=== PATIENT | male | born 1945 | race Two or more races ===

== ENCOUNTER 2018-03-10 12:55 | Inpatient (IN) | payer OTHER ==
[~2018-03-10] VITALS: Ht 162.6 cm; Wt 75.2 kg
[2018-03-10] MEDS ORDERED: POTA10TA31 PO (13:15)
[2018-03-10] MEDS ORDERED: CLOP75TA PO (13:15)
[2018-03-10] MEDS ORDERED: LINA5TAB PO (13:15)
[2018-03-10] MEDS ORDERED: METO25TA91 PO (13:15)
[2018-03-10] MEDS ORDERED: FURO20TA3 PO (13:15)
[2018-03-10 13:57] LABS: BASOPHILS # (AUTO) 0.01 x10^3/uL (0-0.1); BASOPHILS % (AUTO) 0 % (0-1); EOSINOPHILS # (AUTO) 0.02 x10^3/uL (0-0.4); EOSINOPHILS % (AUTO) 0 % (1-7); LYMPHOCYTES # (AUTO) 0.52 x10^3/uL (1-3.4); LYMPHOCYTES % (AUTO) 5 % (22-44); MD NO; MEAN CORPUSCULAR HEMOGLOBIN 30.2 pg (27.5-34.5); MEAN CORPUSCULAR HGB CONC 32.2 g/dL (33.2-36.2); MEAN CORPUSCULAR VOLUME 93.7 fL (81-97); MEAN PLATELET VOLUME 8.9 fL (7.4-10.4); MONOCYTES # (AUTO) 0.42 x10^3/uL (0.2-0.8); MONOCYTES % (AUTO) 4 % (2-9); NEUTROPHILS # (AUTO) 8.94 x10^3/uL (1.8-6.8); NEUTROPHILS % (AUTO) 90 % (42-75); PLATELET COUNT 278 x10^3/uL (130-400); RED BLOOD COUNT 3.87 x10^6/uL (4.38-5.82); RED CELL DISTRIBUTION WIDTH 16.6 % (9.4-14.8)
[2018-03-10 14:05] LABS: ALANINE AMINOTRANSFERASE 31 U/L (12-78); ALBUMIN 3.1 g/dL (3.4-5.0); ANION GAP 10 mmol/L (5-15); CALCIUM 8.5 mg/dL (8.5-10.1); CHLORIDE 112 mmol/L (98-107); CREATININE 2.57 mg/dL (0.7-1.3)
[2018-03-10 14:10] LABS: ALKALINE PHOSPHATASE 103 U/L (45-117); BILIRUBIN,TOTAL 0.6 mg/dL (0.2-1.0); TOTAL PROTEIN 6.4 g/dL (6.4-8.2)
[2018-03-10] MEDS ORDERED: MORPHINE SULFATE 4 MG/ML, 1ML IVPush ONE (14:28)
[2018-03-10] MEDS ORDERED: ASPIRIN 81 MG TABLET CHEW PO ONE (14:30)
[2018-03-10] MEDS ORDERED: ASPIRIN 81 MG TABLET CHEW ONE (14:32)
[2018-03-10] MEDS ORDERED: MORPHINE SULFATE 4 MG/ML, 1ML ONE (14:32)
[2018-03-10] MEDS ORDERED: FENTANYL PF 100 MCG/2ML ONE (14:44)
[2018-03-10] MEDS ORDERED: MIDAZOLAM 1 MG/ML, 5ML ONE (14:44)
[2018-03-10] MEDS ORDERED: BIVALIRUDIN 250 MG ONE (14:44)
[2018-03-10] MEDS ORDERED: VERAPAMIL 2.5 MG/ML, 2ML ONE (14:44)
[2018-03-10] MEDS ORDERED: TICAGRELOR 90 MG TABLET ONE (14:44)
[2018-03-10] MEDS ORDERED: HEPARIN 1,000 UNITS/ML, 10ML ONE (14:45)
[2018-03-10] MEDS ORDERED: HEPARIN 5,000 UNITS/ML, 1ML IV PRN (15:00)
[2018-03-10] MEDS ORDERED: HEPARIN 5,000 UNITS/ML, 1ML IV ONE (15:00)
[2018-03-10] MEDS ORDERED: HEPARIN 25,000 UNITS/500ML PMX 500 ML IV PRN (15:00)
[2018-03-10] MEDS: INSULIN LISPRO 100 UNITS/ML, PEN SQ-INSULIN SCH ×2 (16:00→20:16)
[2018-03-10 16:16] LABS: HEMOGLOBIN A1C 6.2 % (4.2-6.3)
[2018-03-10] MEDS ORDERED: SODIUM CHLORIDE 0.9% 1,000 ML IV SCH (16:21)
[2018-03-10] MEDS: ISOSORBIDE MONONITRATE ER 30 MG TABLET PO SCH (17:50)
[2018-03-10] MEDS ORDERED: ACETAMINOPHEN 325 MG TABLET PO PRN (18:00)
[2018-03-10 18:10] VITALS: BP 115/76
[2018-03-10 19:29] VITALS: BP 114/70
[2018-03-10] MEDS ORDERED: ONDANSETRON 2MG/ML, 2ML IVPush PRN (20:00)
[2018-03-10] MEDS ORDERED: LABETALOL 5MG/ML, 20ML IVPush PRN (20:00)
[2018-03-10] MEDS ORDERED: ZOLPIDEM 5MG TABLET PO PRN (20:00)
[2018-03-10] MEDS ORDERED: morphine SULFATE 10 MG/ML, 1ML IVPush PRN (20:00)
[2018-03-10] MEDS ORDERED: DOCUSATE 100 MG CAPSULE PO PRN (20:00)
[2018-03-10] MEDS: TICAGRELOR 90 MG TABLET PO SCH (20:16)
[2018-03-10] MEDS: ATORVASTATIN 80 MG TABLET PO SCH (20:16)
[2018-03-11 00:40] VITALS: BP 108/68
[2018-03-11 05:13] LABS: ALANINE AMINOTRANSFERASE 25 U/L (12-78); ALBUMIN 2.5 g/dL (3.4-5.0); ANION GAP 10 mmol/L (5-15); CALCIUM 8.1 mg/dL (8.5-10.1); CHLORIDE 112 mmol/L (98-107)
[2018-03-11 05:15] LABS: ALKALINE PHOSPHATASE 85 U/L (45-117); BILIRUBIN,TOTAL 1.2 mg/dL (0.2-1.0); CREATININE 2.28 mg/dL (0.7-1.3); TOTAL PROTEIN 5.5 g/dL (6.4-8.2)
[2018-03-11 05:55] VITALS: BP 124/74
[2018-03-11] MEDS: METOPROLOL SUCCINATE 25 MG TAB.ER.24H PO SCH (05:59)
[2018-03-11 06:43] VITALS: BP 116/67
[2018-03-11] MEDS: INSULIN LISPRO 100 UNITS/ML, PEN SQ-INSULIN SCH ×4 (07:00→20:35)
[2018-03-11] MEDS: TICAGRELOR 90 MG TABLET PO SCH ×2 (08:26→20:28)
[2018-03-11] MEDS: ISOSORBIDE MONONITRATE ER 30 MG TABLET PO SCH (08:27)
[2018-03-11] MEDS: ASPIRIN 81 MG TABLET EC PO SCH (08:27)
[2018-03-11 12:08] VITALS: BP 112/74
[2018-03-11] MEDS: HEPARIN 5,000 UNITS/ML, 1ML SQ SCH (14:40)
[2018-03-11] MEDS: FUROSEMIDE 20 MG TABLET PO SCH (16:26)
[2018-03-11 20:10] VITALS: BP 119/71
[2018-03-11] MEDS: ATORVASTATIN 80 MG TABLET PO SCH (20:28)
[2018-03-12 02:07] VITALS: BP 105/66
[2018-03-12] MEDS: HEPARIN 5,000 UNITS/ML, 1ML SQ SCH ×2 (04:00→15:19)
[2018-03-12 05:34] LABS: BASOPHILS # (AUTO) 0.04 x10^3/uL (0-0.1); BASOPHILS % (AUTO) 1 % (0-1); EOSINOPHILS # (AUTO) 0.23 x10^3/uL (0-0.4); EOSINOPHILS % (AUTO) 3 % (1-7); LYMPHOCYTES # (AUTO) 0.38 x10^3/uL (1-3.4); LYMPHOCYTES % (AUTO) 4 % (22-44); MD NO; MEAN CORPUSCULAR HEMOGLOBIN 30.6 pg (27.5-34.5); MEAN CORPUSCULAR HGB CONC 32.7 g/dL (33.2-36.2); MEAN CORPUSCULAR VOLUME 93.6 fL (81-97); MEAN PLATELET VOLUME 9.1 fL (7.4-10.4); MONOCYTES # (AUTO) 0.71 x10^3/uL (0.2-0.8); MONOCYTES % (AUTO) 8 % (2-9); NEUTROPHILS # (AUTO) 8.02 x10^3/uL (1.8-6.8); NEUTROPHILS % (AUTO) 85 % (42-75); PLATELET COUNT 242 x10^3/uL (130-400); RED BLOOD COUNT 3.61 x10^6/uL (4.38-5.82); RED CELL DISTRIBUTION WIDTH 16.9 % (9.4-14.8)
[2018-03-12 05:44] LABS: ANION GAP 12 mmol/L (5-15); CALCIUM 8.4 mg/dL (8.5-10.1); CHLORIDE 112 mmol/L (98-107)
[2018-03-12 05:45] LABS: CREATININE 1.99 mg/dL (0.7-1.3)
[2018-03-12 05:54] VITALS: BP 120/62
[2018-03-12] MEDS: METOPROLOL SUCCINATE 25 MG TAB.ER.24H PO SCH (05:55)
[2018-03-12] MEDS: INSULIN LISPRO 100 UNITS/ML, PEN SQ-INSULIN SCH ×4 (07:00→19:59)
[2018-03-12 07:28] VITALS: BP 125/76
[2018-03-12] MEDS: ISOSORBIDE MONONITRATE ER 30 MG TABLET PO SCH (09:34)
[2018-03-12] MEDS: FUROSEMIDE 20 MG TABLET PO SCH ×2 (09:34→16:59)
[2018-03-12] MEDS: ASPIRIN 81 MG TABLET EC PO SCH (09:34)
[2018-03-12] MEDS: TICAGRELOR 90 MG TABLET PO SCH ×2 (09:34→19:56)
[2018-03-12 13:21] VITALS: BP 111/69
[2018-03-12 18:50] VITALS: BP 106/59
[2018-03-12] MEDS: ATORVASTATIN 80 MG TABLET PO SCH (19:56)
[2018-03-12] MEDS: GUAIFENESIN/DM 200-20MG, 10ML UDC PO PRN (19:56)
[2018-03-12 21:48] VITALS: BP 115/67
[2018-03-13] MEDS: GUAIFENESIN/DM 200-20MG, 10ML UDC PO PRN ×2 (01:11→08:35)
[2018-03-13 01:21] VITALS: BP 91/50
[2018-03-13] MEDS: HEPARIN 5,000 UNITS/ML, 1ML SQ SCH (02:27)
[2018-03-13] MEDS: METOPROLOL SUCCINATE 25 MG TAB.ER.24H PO SCH (05:46)
[2018-03-13] MEDS: INSULIN LISPRO 100 UNITS/ML, PEN SQ-INSULIN SCH ×2 (07:00→11:00)
[2018-03-13 07:06] VITALS: BP 121/72
[2018-03-13] MEDS: TICAGRELOR 90 MG TABLET PO SCH (08:30)
[2018-03-13] MEDS: ASPIRIN 81 MG TABLET EC PO SCH (08:30)
[2018-03-13] MEDS: ISOSORBIDE MONONITRATE ER 30 MG TABLET PO SCH (08:30)
[2018-03-13] MEDS: FUROSEMIDE 20 MG TABLET PO SCH (08:30)
[2018-03-13] MEDS ORDERED: ISOS30TA8 PO (10:32)
[2018-03-13] MEDS ORDERED: FURO20TA3 PO (10:32)
[2018-03-13] MEDS ORDERED: ASPI81TA45 PO (10:32)
[2018-03-13] MEDS ORDERED: TICA90TA PO (10:32)
[2018-03-13] MEDS ORDERED: BENZ100C PO (10:32)
[2018-03-13] MEDS ORDERED: ATOR-2 PO (10:32)
[2018-03-13 10:39] LABS: ANION GAP 10 mmol/L (5-15); CHLORIDE 110 mmol/L (98-107); CREATININE 2.03 mg/dL (0.7-1.3)
== END 2018-03-13 12:45 | disposition home or self-care (01) | DRG 246 ==
LOC: ED 14:19 → EDIP 14:20 → ED 14:28 → 5SO 16:40 → DCLOUNGE 03-13 12:20
PROVIDERS: ADMIT Internal Medicine; ATTEND Internal Medicine
PROC: 027036Z Dilation of Coronary Artery, One Artery with Three Drug-eluting Intraluminal Devices, Percutaneous Approach (ICD-10-PCS; principal; 2018-03-10)
PROC: B2111ZZ Fluoroscopy of Multiple Coronary Arteries using Low Osmolar Contrast (ICD-10-PCS; 2018-03-10)
PROC: 4A023N7 Measurement of Cardiac Sampling and Pressure, Left Heart, Percutaneous Approach (ICD-10-PCS; 2018-03-10)
PROC: B2151ZZ Fluoroscopy of Left Heart using Low Osmolar Contrast (ICD-10-PCS; 2018-03-10)
DX: I21.4 Non-ST elevation (NSTEMI) myocardial infarction (principal); I50.23 Acute on chronic systolic (congestive) heart failure; N17.0 Acute kidney failure with tubular necrosis; I13.0 Hypertensive heart and chronic kidney disease with heart failure and stage 1 through stage 4 chronic kidney disease, or unspecified chronic kidney disease; D50.9 Iron deficiency anemia, unspecified; D63.8 Anemia in other chronic diseases classified elsewhere; E11.22 Type 2 diabetes mellitus with diabetic chronic kidney disease; E11.65 Type 2 diabetes mellitus with hyperglycemia; E78.5 Hyperlipidemia, unspecified; E87.5 Hyperkalemia; I25.10 Atherosclerotic heart disease of native coronary artery without angina pectoris; I27.20 Pulmonary hypertension, unspecified; I34.0 Nonrheumatic mitral (valve) insufficiency; N18.3 Chronic kidney disease, stage 3 (moderate); Z79.02 Long term (current) use of antithrombotics/antiplatelets; Z83.3 Family history of diabetes mellitus; Z87.891 Personal history of nicotine dependence; Z95.5 Presence of coronary angioplasty implant and graft; Z88.8 Allergy status to other drugs, medicaments and biological substances
CPT/HCPCS: 36415; 93458; 99285; C9600; 71045; 80048; 80053; 82728; 82962; 83036; 83540; 83550; 83735; 83880; 84100; 84466; 84484; 85014; 85018; 85025; 90656; 93005; 96374; 99156; 99157; C1769; C1894; C8929; G0378; J0583; J1644; J2250; J3010; Q9957; C1725; C1874; C1887; J7030; Q9967

== ENCOUNTER 2018-05-28 12:35 | Inpatient (IN) | payer OTHER ==
[~2018-05-28] VITALS: Ht 157.5 cm; Wt 67.0 kg
[~2018-05-28 12:35] MED LIST: ASPI81TA45 PO; ATOR-2 PO; BENZ100C PO; CLOP75TA PO; FURO20TA3 PO; ISOS30TA8 PO; LINA5TAB PO; METO25TA91 PO; POTA10TA31 PO; TICA90TA PO
[2018-05-28 13:42] LABS: BASOPHILS # (AUTO) 0.07 x10^3/uL (0-0.1); BASOPHILS % (AUTO) 1 % (0-1); EOSINOPHILS # (AUTO) 0.27 x10^3/uL (0-0.4); EOSINOPHILS % (AUTO) 3 % (1-7); LYMPHOCYTES % (AUTO) 10 % (22-44); MD NO; MEAN CORPUSCULAR HEMOGLOBIN 30.6 pg (27.5-34.5); MEAN CORPUSCULAR HGB CONC 32.9 g/dL (33.2-36.2); MEAN CORPUSCULAR VOLUME 92.9 fL (81-97); MEAN PLATELET VOLUME 9.5 fL (7.4-10.4); MONOCYTES # (AUTO) 0.69 x10^3/uL (0.2-0.8); MONOCYTES % (AUTO) 9 % (2-9); NEUTROPHILS # (AUTO) 6.06 x10^3/uL (1.8-6.8); NEUTROPHILS % (AUTO) 77 % (42-75); PLATELET COUNT 193 x10^3/uL (130-400); RED CELL DISTRIBUTION WIDTH 17.6 % (9.4-14.8)
[2018-05-28 13:51] LABS: ALBUMIN 3.3 g/dL (3.4-5.0); ANION GAP 4 mmol/L (5-15); CALCIUM 8.6 mg/dL (8.5-10.1); CHLORIDE 113 mmol/L (98-107)
[2018-05-28 13:57] LABS: CREATININE 2.47 mg/dL (0.7-1.3); TROPONIN I 0.022 ng/mL (0.000-0.045)
--- NOTE | 2018-05-28 14:24 | NUR ---
PT TO ROOM FROM LOBBY.
--- NOTE | 2018-05-28 14:25 | NUR ---
PIT ORDERS COMPLETED, AWAITING RECHECK BY ERP.
--- NOTE | 2018-05-28 14:49 | NUR ---
CONFERRED WITH DR LOUISE, PT TO BE ADMITTED. IV SL PLACED, MED REC COMPLETED. PT ON HEART MONITOR, BP CUFF, PULSE OX. PT AND FAMILY UPDATED ON POC. CALL LIGHT WITHIN REACH.
[2018-05-28] MEDS ORDERED: FLUO20CA8 PO (14:59)
[2018-05-28] MEDS ORDERED: CLOP75TA52 PO (14:59)
[2018-05-28] MEDS ORDERED: LOSA25TA2 PO (14:59)
[2018-05-28] MEDS ORDERED: SODIUM CHLORIDE FLUSH 10ML SYR IVF PRN (15:00)
[2018-05-28] MEDS ORDERED: ONDANSETRON ODT 4 MG PO PRN (15:30)
[2018-05-28] MEDS ORDERED: ONDANSETRON 2MG/ML, 2ML IVPush PRN (15:30)
[2018-05-28] MEDS ORDERED: POLYETHYLENE GLYCOL 17 GM PACKET PO PRN (15:30)
[2018-05-28] MEDS ORDERED: morphine SULFATE 10 MG/ML, 1ML IVPush PRN (15:30)
[2018-05-28 15:39] LABS: FREE T4 (FREE THYROXINE) 0.9 ng/dL (0.76-1.46); THYROID STIMULATING HORMONE 1.33 mIU/L (0.358-3.740)
--- NOTE | 2018-05-28 16:02 | NUR ---
REPORT TO DEJAH KELLY, WAITING FOR ROOM TO BE CLEANED.
[2018-05-28] MEDS ORDERED: LABETALOL 5 MG/ML SYRINGE IV PRN (16:30)
[2018-05-28 16:59] VITALS: BP 144/87
[2018-05-28] MEDS ORDERED: ALBUTEROL SULFATE 2.5 MG/3 ML NPPB PRN (17:00)
[2018-05-28 17:24] VITALS: BP 140/87
[2018-05-28 20:47] VITALS: BP 136/82
[2018-05-28] MEDS: HEPARIN 5,000 UNITS/ML, 1ML SQ SCH (20:58)
[2018-05-28] MEDS: ATORVASTATIN 80 MG TABLET PO SCH (20:58)
[2018-05-28 23:24] LABS: TROPONIN I 0.036 ng/mL (0.000-0.045)
[2018-05-29 01:54] VITALS: BP 143/79
[2018-05-29] MEDS: HEPARIN 5,000 UNITS/ML, 1ML SQ SCH ×3 (05:08→20:06)
[2018-05-29 05:34] LABS: BASOPHILS # (AUTO) 0.07 x10^3/uL (0-0.1); BASOPHILS % (AUTO) 1 % (0-1); EOSINOPHILS # (AUTO) 0.36 x10^3/uL (0-0.4); EOSINOPHILS % (AUTO) 5 % (1-7); LYMPHOCYTES # (AUTO) 0.86 x10^3/uL (1-3.4); LYMPHOCYTES % (AUTO) 12 % (22-44); MD NO; MEAN CORPUSCULAR HEMOGLOBIN 30.2 pg (27.5-34.5); MEAN CORPUSCULAR HGB CONC 32.3 g/dL (33.2-36.2); MEAN CORPUSCULAR VOLUME 93.4 fL (81-97); MEAN PLATELET VOLUME 9.6 fL (7.4-10.4); MONOCYTES # (AUTO) 0.81 x10^3/uL (0.2-0.8); MONOCYTES % (AUTO) 11 % (2-9); NEUTROPHILS # (AUTO) 5.36 x10^3/uL (1.8-6.8); NEUTROPHILS % (AUTO) 72 % (42-75); PLATELET COUNT 187 x10^3/uL (130-400); RED BLOOD COUNT 4.19 x10^6/uL (4.38-5.82); RED CELL DISTRIBUTION WIDTH 17.8 % (9.4-14.8)
[2018-05-29 05:37] LABS: ALBUMIN 2.8 g/dL (3.4-5.0); ANION GAP 6 mmol/L (5-15); CALCIUM 8.3 mg/dL (8.5-10.1); CHLORIDE 114 mmol/L (98-107)
[2018-05-29 05:43] LABS: ALANINE AMINOTRANSFERASE 23 U/L (12-78); ALKALINE PHOSPHATASE 119 U/L (45-117); BILIRUBIN,TOTAL 0.9 mg/dL (0.2-1.0); CREATININE 2.11 mg/dL (0.7-1.3); TOTAL PROTEIN 5.9 g/dL (6.4-8.2); TROPONIN I 0.032 ng/mL (0.000-0.045)
[2018-05-29 07:25] VITALS: BP 143/77
[2018-05-29] MEDS ORDERED: PANTOPRAZOLE 40 MG IV IVPush SCH (07:30)
[2018-05-29] MEDS: CLOPIDOGREL 75 MG TABLET PO SCH (09:31)
[2018-05-29] MEDS: FLUOXETINE HCL 20 MG CAPSULE PO SCH (09:31)
[2018-05-29] MEDS: ASPIRIN 81 MG TABLET EC PO SCH (09:31)
[2018-05-29] MEDS: SENNA/DOCUSATE TABLET PO SCH (09:31)
[2018-05-29] MEDS: FUROSEMIDE 40 MG/4 ML IV SCH ×2 (11:27→17:10)
[2018-05-29 14:11] VITALS: BP 145/70
[2018-05-29] MEDS: ATORVASTATIN 80 MG TABLET PO SCH (20:07)
[2018-05-29 21:10] VITALS: BP 157/79
[2018-05-30 01:06] VITALS: BP 147/86
[2018-05-30 05:05] LABS: ANION GAP 4 mmol/L (5-15); CALCIUM 8.4 mg/dL (8.5-10.1); CHLORIDE 115 mmol/L (98-107)
[2018-05-30] MEDS: HEPARIN 5,000 UNITS/ML, 1ML SQ SCH ×2 (05:05→11:40)
[2018-05-30 05:06] LABS: BASOPHILS # (AUTO) 0.05 x10^3/uL (0-0.1); BASOPHILS % (AUTO) 1 % (0-1); EOSINOPHILS # (AUTO) 0.43 x10^3/uL (0-0.4); EOSINOPHILS % (AUTO) 6 % (1-7); LYMPHOCYTES # (AUTO) 0.94 x10^3/uL (1-3.4); LYMPHOCYTES % (AUTO) 12 % (22-44); MD NO; MEAN CORPUSCULAR HEMOGLOBIN 30.1 pg (27.5-34.5); MEAN CORPUSCULAR HGB CONC 32.6 g/dL (33.2-36.2); MEAN CORPUSCULAR VOLUME 92.5 fL (81-97); MEAN PLATELET VOLUME 9.8 fL (7.4-10.4); MONOCYTES # (AUTO) 0.97 x10^3/uL (0.2-0.8); MONOCYTES % (AUTO) 12 % (2-9); NEUTROPHILS # (AUTO) 5.53 x10^3/uL (1.8-6.8); NEUTROPHILS % (AUTO) 70 % (42-75); PLATELET COUNT 184 x10^3/uL (130-400); RED BLOOD COUNT 4.38 x10^6/uL (4.38-5.82); RED CELL DISTRIBUTION WIDTH 17.7 % (9.4-14.8)
[2018-05-30 05:07] LABS: CREATININE 2.41 mg/dL (0.7-1.3)
[2018-05-30] MEDS ORDERED: PANTOPROZOLE 40MG TABLET PO SCH (06:00)
[2018-05-30 08:16] VITALS: BP 133/89
[2018-05-30] MEDS: SENNA/DOCUSATE TABLET PO SCH (08:18)
[2018-05-30] MEDS: FUROSEMIDE 40 MG/4 ML IV SCH (08:18)
[2018-05-30] MEDS: CLOPIDOGREL 75 MG TABLET PO SCH (08:18)
[2018-05-30] MEDS: ASPIRIN 81 MG TABLET EC PO SCH (08:18)
[2018-05-30] MEDS: FLUOXETINE HCL 20 MG CAPSULE PO SCH (08:18)
[2018-05-30] MEDS ORDERED: ISOSORBIDE MONONITRATE ER 30 MG TABLET PO SCH (09:00)
[2018-05-30] MEDS ORDERED: CARVEDILOL 6.25 MG TABLET PO SCH (11:30)
[2018-05-30 11:39] VITALS: BP 123/63
[2018-05-30] MEDS ORDERED: PANT40TA5 PO (12:17)
[2018-05-30] MEDS ORDERED: ISOS30TA8 PO (12:17)
[2018-05-30] MEDS ORDERED: HYDR-3343 PO (12:17)
[2018-05-30] MEDS ORDERED: POTA10CA PO (12:20)
[2018-05-30] MEDS ORDERED: FURO20TA3 PO (12:20)
[2018-05-30] MEDS ORDERED: CARV6.2512 PO (13:24)
== END 2018-05-30 13:45 | disposition home or self-care (01) | DRG 292 ==
LOC: ED 14:47 → EDIP 15:05 → ED 15:17 → 5SO 16:39 → OBSVTOIN 05-29 12:05 → DCLOUNGE 05-30 13:11
PROVIDERS: ADMIT Internal Medicine; ATTEND Internal Medicine
DX: I13.0 Hypertensive heart and chronic kidney disease with heart failure and stage 1 through stage 4 chronic kidney disease, or unspecified chronic kidney disease (principal); I50.40 Unspecified combined systolic (congestive) and diastolic (congestive) heart failure; N17.9 Acute kidney failure, unspecified; E11.22 Type 2 diabetes mellitus with diabetic chronic kidney disease; E78.5 Hyperlipidemia, unspecified; I25.5 Ischemic cardiomyopathy; I25.10 Atherosclerotic heart disease of native coronary artery without angina pectoris; I34.0 Nonrheumatic mitral (valve) insufficiency; N18.3 Chronic kidney disease, stage 3 (moderate); I25.2 Old myocardial infarction; Z95.5 Presence of coronary angioplasty implant and graft; Z83.3 Family history of diabetes mellitus
CPT/HCPCS: 36415; 71045; 80048; 80053; 82040; 83735; 83880; 84100; 84439; 84443; 84484; 85025; 93005; 99285; G0378; J1644; J1940; C9113

== ENCOUNTER 2019-03-19 10:56 | Day surgery (SDC) | payer SELFPAY ==
[~2019-03-19] VITALS: Ht 160 cm; Wt 73.0 kg
[~2019-03-19 10:56] MED LIST changes: +ALBU6.7H8 INH; +APIX5TAB PO; +CARV6.2512 PO; +CLOP75TA52 PO; +FLUO10CA7 PO; +FLUO10TA PO; +FLUO20CA8 PO; +GLIM4TAB4 PO; +HYDR-3342 PO; +HYDR-3343 PO; +LOSA25TA2 PO; +LOSA25TA25 PO; +NITR0.3T5 SL; +PANT40TA5 PO; +POTA10CA PO; +PROPOFOL 10 MG/ML, 20ML ONE
[2019-03-19] MEDS ORDERED: SODIUM CHLORIDE 0.9% 1,000 ML IV SCH (11:30)
[2019-03-19 11:35] VITALS: BP 159/104
== END 2019-03-19 15:07 | disposition home or self-care (01) ==
LOC: CACL 10:56
PROVIDERS: ATTEND Internal Medicine Cardiovascular Disease
DX: I25.5 Ischemic cardiomyopathy (principal); I08.3 Combined rheumatic disorders of mitral, aortic and tricuspid valves; I25.10 Atherosclerotic heart disease of native coronary artery without angina pectoris; I13.0 Hypertensive heart and chronic kidney disease with heart failure and stage 1 through stage 4 chronic kidney disease, or unspecified chronic kidney disease; I50.21 Acute systolic (congestive) heart failure; N18.9 Chronic kidney disease, unspecified; I25.2 Old myocardial infarction; E11.9 Type 2 diabetes mellitus without complications; E78.2 Mixed hyperlipidemia; F32.9 Major depressive disorder, single episode, unspecified; Z79.01 Long term (current) use of anticoagulants; Z79.82 Long term (current) use of aspirin; Z79.899 Other long term (current) drug therapy; Z88.8 Allergy status to other drugs, medicaments and biological substances; Z95.5 Presence of coronary angioplasty implant and graft
CPT/HCPCS: 93312; 93321; 93325; J2704

== ENCOUNTER 2019-05-01 12:51 | Inpatient (IN) | payer MEDICAID ==
[~2019-05-01] VITALS: Ht 152.4 cm; Wt 54.5 kg
[~2019-05-01 12:51] MED LIST changes: +FLUO10CA14 PO; -FLUO10CA7 PO; +FLUO20CA23 PO; -FLUO20CA8 PO; -GLIM4TAB4 PO; +GLIM4TAB8 PO; -PROPOFOL 10 MG/ML, 20ML ONE
--- NOTE | 2019-05-01 13:16 | NUR ---
First contact with pt. Pt c/o L & R upper CP x2 days described as "pressure" rated at 7/10. Pt PT states that he has also been experiencing SOB x2 weeks. 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 Continuous heart, oxygen and BP Monitors applied, all safety measures observed.
--- NOTE | 2019-05-01 13:20 | NUR ---
Dr. Banuelos at bedside to evaluate pt.
[2019-05-01 13:46] LABS: BASOPHILS # (AUTO) 0.02 x10^3/uL (0-0.1); BASOPHILS % (AUTO) 0 % (0-1); EOSINOPHILS # (AUTO) 0.25 x10^3/uL (0-0.4); EOSINOPHILS % (AUTO) 4 % (1-7); LYMPHOCYTES # (AUTO) 0.59 x10^3/uL (1-3.4); LYMPHOCYTES % (AUTO) 9 % (22-44); MD NO; MEAN CORPUSCULAR HEMOGLOBIN 31.2 pg (27.5-34.5); MEAN CORPUSCULAR HGB CONC 32.4 g/dL (33.2-36.2); MEAN PLATELET VOLUME 9.7 fL (7.4-10.4); MONOCYTES # (AUTO) 0.57 x10^3/uL (0.2-0.8); MONOCYTES % (AUTO) 9 % (2-9); NEUTROPHILS # (AUTO) 5.02 x10^3/uL (1.8-6.8); NEUTROPHILS % (AUTO) 78 % (42-75); PLATELET COUNT 163 x10^3/uL (130-400); RED BLOOD COUNT 4.25 x10^6/uL (4.38-5.82); RED CELL DISTRIBUTION WIDTH 17.4 % (9.4-14.8)
[2019-05-01 13:52] LABS: INTERNATIONAL NORMALIZED RATIO 1.07 (0.93-1.1); PROTHROMBIN TIME 11.4 Seconds (9.6-11.5)
[2019-05-01 13:53] LABS: ALANINE AMINOTRANSFERASE 14 U/L (12-78); ALBUMIN 3.2 g/dL (3.4-5.0); ANION GAP 6 mmol/L (5-15); CALCIUM 8.9 mg/dL (8.5-10.1); CHLORIDE 113 mmol/L (98-107); CREATININE 1.97 mg/dL (0.7-1.3)
[2019-05-01 13:58] LABS: ALKALINE PHOSPHATASE 146 U/L (45-117); BILIRUBIN,TOTAL 0.9 mg/dL (0.2-1.0); TOTAL PROTEIN 6.7 g/dL (6.4-8.2); TROPONIN I 0.026 ng/mL (0.000-0.045)
--- NOTE | 2019-05-01 14:10 | NUR ---
Pt resting in bed, NADN, denies needs.
--- NOTE | 2019-05-01 14:28 | NUR ---
Pt provided urinal per request, denies other needs.
[2019-05-01] MEDS ORDERED: FUROSEMIDE 20 MG/2 ML IV ONE (15:00)
[2019-05-01] MEDS ORDERED: FUROSEMIDE 20 MG/2 ML ONE (15:17)
--- NOTE | 2019-05-01 15:28 | NUR ---
Report called to Kana KELLY. Floor ready for pt transport. Dr. Navarro at bedside to evaluate pt for admission.
[2019-05-01] MEDS ORDERED: FUROSEMIDE 40 MG/4 ML IV ONE (15:30)
[2019-05-01] MEDS ORDERED: OXYcodone IR 5MG TABLET PO PRN (16:00)
[2019-05-01] MEDS ORDERED: ACETAMINOPHEN 325 MG TABLET PO PRN (16:00)
[2019-05-01] MEDS: INSULIN LISPRO 100 UNITS/ML, PEN SQ-INSULIN SCH ×2 (16:05→20:44)
[2019-05-01] MEDS ORDERED: VALS1TAB7 PO (16:22)
[2019-05-01] MEDS ORDERED: ISOS30TA8 PO (16:22)
[2019-05-01] MEDS ORDERED: hydrALAzine 20 MG/ML, 1ML IV PRN (16:30)
[2019-05-01 16:59] VITALS: BP 169/89
[2019-05-01 19:26] VITALS: BP 156/90
[2019-05-01] MEDS: ATORVASTATIN 80 MG TABLET PO SCH (20:28)
[2019-05-01] MEDS: LOSARTAN 25MG TABLET PO SCH (20:29)
[2019-05-01] MEDS: APIXABAN 5 MG TABLET PO SCH (20:30)
[2019-05-01] MEDS: CARVEDILOL 6.25 MG TABLET PO SCH (20:30)
[2019-05-01 23:48] LABS: TROPONIN I 0.042 ng/mL (0.000-0.045)
[2019-05-02 00:17] VITALS: BP 116/71
[2019-05-02 05:05] LABS: BASOPHILS # (AUTO) 0.05 x10^3/uL (0-0.1); BASOPHILS % (AUTO) 1 % (0-1); EOSINOPHILS % (AUTO) 5 % (1-7); LYMPHOCYTES # (AUTO) 0.73 x10^3/uL (1-3.4); LYMPHOCYTES % (AUTO) 13 % (22-44); MD NO; MEAN CORPUSCULAR HEMOGLOBIN 31.3 pg (27.5-34.5); MEAN CORPUSCULAR HGB CONC 32.8 g/dL (33.2-36.2); MEAN CORPUSCULAR VOLUME 95.4 fL (81-97); MEAN PLATELET VOLUME 9.6 fL (7.4-10.4); MONOCYTES # (AUTO) 0.63 x10^3/uL (0.2-0.8); MONOCYTES % (AUTO) 11 % (2-9); NEUTROPHILS # (AUTO) 4.06 x10^3/uL (1.8-6.8); NEUTROPHILS % (AUTO) 70 % (42-75); PLATELET COUNT 139 x10^3/uL (130-400); RED BLOOD COUNT 3.89 x10^6/uL (4.38-5.82); RED CELL DISTRIBUTION WIDTH 16.8 % (9.4-14.8)
[2019-05-02 05:14] LABS: ANION GAP 7 mmol/L (5-15); CALCIUM 8.5 mg/dL (8.5-10.1); CHLORIDE 112 mmol/L (98-107); CREATININE 2.05 mg/dL (0.7-1.3)
[2019-05-02] MEDS: INSULIN LISPRO 100 UNITS/ML, PEN SQ-INSULIN SCH ×4 (07:00→21:00)
[2019-05-02 07:25] VITALS: BP 120/70
[2019-05-02] MEDS ORDERED: FLUOXETINE HCL PO SCH (09:00)
[2019-05-02] MEDS: VALSARTAN 160 MG TABLET PO SCH (09:16)
[2019-05-02] MEDS: ASPIRIN 81 MG TABLET EC PO SCH (09:16)
[2019-05-02] MEDS: FUROSEMIDE 40 MG/4 ML IV SCH (09:16)
[2019-05-02] MEDS: CARVEDILOL 6.25 MG TABLET PO SCH ×2 (09:17→21:17)
[2019-05-02] MEDS: LINAGLIPTIN 5 MG TAB PO SCH (09:17)
[2019-05-02] MEDS: FLUOXETINE HCL 20 MG/5 ML ORAL.SOL PO SCH (09:17)
[2019-05-02] MEDS: APIXABAN 5 MG TABLET PO SCH (09:17)
[2019-05-02] MEDS: ISOSORBIDE MONONITRATE ER 30 MG TABLET PO SCH (09:20)
[2019-05-02] MEDS: SPIRONOLACTONE 25 MG TABLET PO SCH (10:15)
[2019-05-02 12:05] VITALS: BP 110/68
[2019-05-02 19:00] VITALS: BP 125/72
[2019-05-02] MEDS: APIXABAN 2.5 MG TABLET PO SCH (21:18)
[2019-05-02] MEDS: ATORVASTATIN 80 MG TABLET PO SCH (21:19)
[2019-05-02] MEDS: LOSARTAN 25MG TABLET PO SCH (21:19)
[2019-05-03 01:54] VITALS: BP 124/71
[2019-05-03 05:23] LABS: ANION GAP 5 mmol/L (5-15); CALCIUM 8.5 mg/dL (8.5-10.1); CHLORIDE 111 mmol/L (98-107); CREATININE 2.09 mg/dL (0.7-1.3)
[2019-05-03] MEDS: INSULIN LISPRO 100 UNITS/ML, PEN SQ-INSULIN SCH (07:00)
[2019-05-03 07:45] VITALS: BP 135/80
[2019-05-03] MEDS: LINAGLIPTIN 5 MG TAB PO SCH (09:15)
[2019-05-03] MEDS: VALSARTAN 160 MG TABLET PO SCH (09:15)
[2019-05-03] MEDS: SPIRONOLACTONE 25 MG TABLET PO SCH (09:15)
[2019-05-03] MEDS: ASPIRIN 81 MG TABLET EC PO SCH (09:15)
[2019-05-03] MEDS: CARVEDILOL 6.25 MG TABLET PO SCH (09:15)
[2019-05-03] MEDS: APIXABAN 2.5 MG TABLET PO SCH (09:15)
[2019-05-03] MEDS: ISOSORBIDE MONONITRATE ER 30 MG TABLET PO SCH (09:15)
[2019-05-03] MEDS: FUROSEMIDE 40 MG/4 ML IV SCH (09:16)
[2019-05-03] MEDS: FLUOXETINE HCL 20 MG/5 ML ORAL.SOL PO SCH (09:16)
[2019-05-03] MEDS ORDERED: APIX2.5T PO (11:59)
[2019-05-03 12:37] VITALS: BP 128/72
== END 2019-05-03 13:34 | disposition home or self-care (01) | DRG 194 ==
LOC: ED 13:19 → EDIP 15:03 → 5SO 15:45 → DCLOUNGE 05-03 13:21
PROVIDERS: ADMIT Internal Medicine Infectious Disease; ATTEND Hospitalist
DX: I13.0 Hypertensive heart and chronic kidney disease with heart failure and stage 1 through stage 4 chronic kidney disease, or unspecified chronic kidney disease (principal); I47.2 Ventricular tachycardia; E11.22 Type 2 diabetes mellitus with diabetic chronic kidney disease; I27.20 Pulmonary hypertension, unspecified; I25.5 Ischemic cardiomyopathy; I34.0 Nonrheumatic mitral (valve) insufficiency; N18.3 Chronic kidney disease, stage 3 (moderate); I50.23 Acute on chronic systolic (congestive) heart failure; I25.118 Atherosclerotic heart disease of native coronary artery with other forms of angina pectoris; I25.2 Old myocardial infarction; Z82.49 Family history of ischemic heart disease and other diseases of the circulatory system; Z95.5 Presence of coronary angioplasty implant and graft; Z79.84 Long term (current) use of oral hypoglycemic drugs
CPT/HCPCS: 36415; 71045; 80048; 80053; 82962; 83735; 83880; 84100; 84484; 85025; 85610; 85730; 93005; 96374; G0378; J1940

== ENCOUNTER 2019-07-23 11:11 | Day surgery (SDC) | payer MEDICAID ==
[~2019-07-23] VITALS: Ht 152.4 cm; Wt 72.7 kg
[~2019-07-23 11:11] MED LIST changes: +APIX2.5T PO; +FURO40TA6 PO; +GUAI237L98 PO; +VALS1TAB7 PO
[2019-07-23 11:38] VITALS: BP 151/95
[2019-07-23 11:47] LABS: BASOPHILS # (AUTO) 0.04 x10^3/uL (0-0.1); BASOPHILS % (AUTO) 1 % (0-1); EOSINOPHILS % (AUTO) 4 % (1-7); LYMPHOCYTES # (AUTO) 0.54 x10^3/uL (1-3.4); LYMPHOCYTES % (AUTO) 7 % (22-44); MD NO; MEAN CORPUSCULAR HEMOGLOBIN 30.1 pg (27.5-34.5); MEAN CORPUSCULAR HGB CONC 32.6 g/dL (33.2-36.2); MEAN CORPUSCULAR VOLUME 92.4 fL (81-97); MEAN PLATELET VOLUME 9.3 fL (7.4-10.4); MONOCYTES # (AUTO) 0.55 x10^3/uL (0.2-0.8); MONOCYTES % (AUTO) 7 % (2-9); NEUTROPHILS # (AUTO) 6.21 x10^3/uL (1.8-6.8); NEUTROPHILS % (AUTO) 81 % (42-75); PLATELET COUNT 177 x10^3/uL (130-400); RED BLOOD COUNT 4.42 x10^6/uL (4.38-5.82); RED CELL DISTRIBUTION WIDTH 20.6 % (9.4-14.8)
[2019-07-23] MEDS ORDERED: FURO20TA3 PO (11:51)
[2019-07-23] MEDS ORDERED: ALBU18HF INH (11:51)
[2019-07-23] MEDS ORDERED: BECL10.62 INH (11:51)
[2019-07-23] MEDS ORDERED: VALS1TAB25 PO (11:51)
[2019-07-23 11:57] LABS: ANION GAP 8 mmol/L (5-15); CALCIUM 8.8 mg/dL (8.5-10.1); CHLORIDE 113 mmol/L (98-107); CREATININE 2.01 mg/dL (0.7-1.3)
[2019-07-23] MEDS ORDERED: MIDAZOLAM 1 MG/ML, 5ML ONE (12:10)
[2019-07-23] MEDS ORDERED: BIVALIRUDIN 250 MG ONE (12:11)
[2019-07-23] MEDS ORDERED: HEPARIN 1,000 UNITS/ML, 10ML ONE (12:11)
[2019-07-23] MEDS ORDERED: VERAPAMIL 2.5 MG/ML, 2ML ONE (12:11)
[2019-07-23] MEDS ORDERED: FENTANYL PF 100 MCG/2ML ONE (12:11)
[2019-07-23] MEDS ORDERED: TICAGRELOR 90 MG TABLET ONE (12:11)
[2019-07-23] MEDS ORDERED: LIDOCAINE-MPF 1%, 5ML ONE (12:11)
== END 2019-07-23 16:20 | disposition home or self-care (01) ==
LOC: CACL 11:11
PROVIDERS: ATTEND Internal Medicine Cardiovascular Disease
DX: T82.855A Stenosis of coronary artery stent, initial encounter (principal); I34.0 Nonrheumatic mitral (valve) insufficiency; I25.10 Atherosclerotic heart disease of native coronary artery without angina pectoris; I25.82 Chronic total occlusion of coronary artery; E11.22 Type 2 diabetes mellitus with diabetic chronic kidney disease; I13.0 Hypertensive heart and chronic kidney disease with heart failure and stage 1 through stage 4 chronic kidney disease, or unspecified chronic kidney disease; N18.3 Chronic kidney disease, stage 3 (moderate); I50.43 Acute on chronic combined systolic (congestive) and diastolic (congestive) heart failure; I25.5 Ischemic cardiomyopathy; I25.2 Old myocardial infarction; E78.5 Hyperlipidemia, unspecified; K21.9 Gastro-esophageal reflux disease without esophagitis; F32.9 Major depressive disorder, single episode, unspecified; Z79.84 Long term (current) use of oral hypoglycemic drugs; Z79.899 Other long term (current) drug therapy; Z87.891 Personal history of nicotine dependence; Z88.6 Allergy status to analgesic agent; Y83.8 Other surgical procedures as the cause of abnormal reaction of the patient, or of later complication, without mention of misadventure at the time of the procedure
CPT/HCPCS: 36415; 80048; 85025; 93458; 93571; 99156; 99157; C1760; C1769; C1894; J1644; J2250; J3010; Q9967; J0583

== ENCOUNTER 2019-08-17 06:03 | Inpatient (IN) | payer MEDICAID ==
[~2019-08-17] VITALS: Ht 152.4 cm; Wt 73.3 kg
[~2019-08-17 06:03] MED LIST changes: +ALBU18HF INH; +BECL10.62 INH; +VALS1TAB25 PO
[2019-08-17] MEDS ORDERED: ONDANSETRON 2MG/ML, 2ML IVPush PRN ×2 (06:30→13:30)
[2019-08-17 06:45] VITALS: BP 153/101
[2019-08-17 06:56] LABS: BASOPHILS # (AUTO) 0.06 x10^3/uL (0-0.1); BASOPHILS % (AUTO) 1 % (0-1); EOSINOPHILS # (AUTO) 0.18 x10^3/uL (0-0.4); EOSINOPHILS % (AUTO) 3 % (1-7); LYMPHOCYTES # (AUTO) 0.53 x10^3/uL (1-3.4); LYMPHOCYTES % (AUTO) 9 % (22-44); MD NO; MEAN CORPUSCULAR HEMOGLOBIN 29.6 pg (27.5-34.5); MEAN CORPUSCULAR VOLUME 92.5 fL (81-97); MEAN PLATELET VOLUME 9.3 fL (7.4-10.4); MONOCYTES # (AUTO) 0.68 x10^3/uL (0.2-0.8); MONOCYTES % (AUTO) 11 % (2-9); NEUTROPHILS # (AUTO) 4.56 x10^3/uL (1.8-6.8); NEUTROPHILS % (AUTO) 76 % (42-75); PLATELET COUNT 182 x10^3/uL (130-400); RED BLOOD COUNT 4.46 x10^6/uL (4.38-5.82); RED CELL DISTRIBUTION WIDTH 21.1 % (9.4-14.8)
[2019-08-17] MEDS: PLEASE ENTER HEIGHT AND WEIGHT MC SCH ×2 (07:00→13:13)
[2019-08-17] MEDS ORDERED: LIDOCAINE 1%, 20ML ONE (07:01)
[2019-08-17 07:06] LABS: INTERNATIONAL NORMALIZED RATIO 1.13 (0.93-1.1)
[2019-08-17 07:07] LABS: ANION GAP 6 mmol/L (5-15); CHLORIDE 113 mmol/L (98-107); CREATININE 2.17 mg/dL (0.7-1.3)
[2019-08-17] MEDS ORDERED: LOSA25TA25 PO (07:14)
[2019-08-17] MEDS ORDERED: HEPARIN 1,000 UNITS/ML, 10ML ONE (07:41)
[2019-08-17] MEDS ORDERED: FENTANYL PF 250 MCG/5ML ONE (07:46)
[2019-08-17] MEDS ORDERED: CEFAZOLIN 1,000 MG ONE (08:00)
[2019-08-17] MEDS ORDERED: HEPARIN 1,000 UNITS/ML, 30ML ONE (09:19)
[2019-08-17] MEDS ORDERED: ROCURONIUM 10MG/ML,5ML ONE (09:19)
[2019-08-17] MEDS ORDERED: PROPOFOL 10 MG/ML, 20ML ONE (09:19)
[2019-08-17] MEDS ORDERED: ALBUTEROL SULFATE INH PRN (10:30)
[2019-08-17] MEDS ORDERED: FUROSEMIDE 20 MG TABLET PO SCH (10:30)
[2019-08-17] MEDS ORDERED: NITROGLYCERIN SINGLE TAB 0.4 MG SL PRN ×2 (10:30→13:18)
[2019-08-17] MEDS: APIXABAN 2.5 MG TABLET PO SCH ×2 (11:00→20:31)
[2019-08-17] MEDS ORDERED: APIXABAN 5 MG TABLET ONE (11:01)
[2019-08-17] MEDS ORDERED: FUROSEMIDE 40 MG/4 ML ONE (11:01)
[2019-08-17] MEDS ORDERED: FUROSEMIDE 40 MG/4 ML IV ONE (11:30)
[2019-08-17] MEDS ORDERED: hydrALAzine 20 MG/ML, 1ML ONE ×2 (11:42→13:09)
[2019-08-17] MEDS: ASPIRIN 81 MG TABLET EC PO SCH (13:17)
[2019-08-17] MEDS: ISOSORBIDE MONONITRATE ER 30 MG TABLET PO SCH (13:17)
[2019-08-17] MEDS ORDERED: LABETALOL 100 MG TABLET ONE (13:23)
[2019-08-17] MEDS ORDERED: LABETALOL 5MG/ML, 20ML ONE (13:23)
[2019-08-17] MEDS ORDERED: MAALOX/HYOSCYAMINE/LIDOCAINE 45 ML BTL PO PRN (13:30)
[2019-08-17] MEDS: SODIUM CHLORIDE 0.9% 1,000 ML IV SCH ×2 (13:30→23:30)
[2019-08-17] MEDS: LABETALOL 5MG/ML, 20ML IVPush PRN (13:30)
[2019-08-17] MEDS ORDERED: ACETAMINOPHEN 650 MG SUPP PR PRN (13:30)
[2019-08-17] MEDS ORDERED: ACETAMINOPHEN 325 MG TABLET PO PRN (13:30)
[2019-08-17] MEDS ORDERED: HYDROcodone/APAP 5/325 TABLET PO PRN (13:30)
[2019-08-17] MEDS: hydrALAzine 20 MG/ML, 1ML IVPush PRN ×2 (13:42→16:45)
[2019-08-17] MEDS ORDERED: NITROGLYCERIN/D5W PMX 250 ML IV PRN (14:00)
[2019-08-17] MEDS: CARVEDILOL 6.25 MG TABLET PO SCH (20:31)
[2019-08-17] MEDS ORDERED: ATORVASTATIN 80 MG TABLET PO SCH (21:00)
[2019-08-17] MEDS ORDERED: LOSARTAN 25MG TABLET PO SCH (21:00)
[2019-08-18 05:00] VITALS: BP 137/51
[2019-08-18] MEDS: LABETALOL 5MG/ML, 20ML IVPush PRN (05:35)
[2019-08-18 06:03] LABS: BASOPHILS # (AUTO) 0.01 x10^3/uL (0-0.1); BASOPHILS % (AUTO) 0 % (0-1); EOSINOPHILS # (AUTO) 0.11 x10^3/uL (0-0.4); EOSINOPHILS % (AUTO) 2 % (1-7); LYMPHOCYTES # (AUTO) 0.52 x10^3/uL (1-3.4); LYMPHOCYTES % (AUTO) 7 % (22-44); MD NO; MEAN CORPUSCULAR HEMOGLOBIN 29.7 pg (27.5-34.5); MEAN CORPUSCULAR HGB CONC 32.4 g/dL (33.2-36.2); MEAN CORPUSCULAR VOLUME 91.8 fL (81-97); MEAN PLATELET VOLUME 8.8 fL (7.4-10.4); MONOCYTES # (AUTO) 0.84 x10^3/uL (0.2-0.8); MONOCYTES % (AUTO) 12 % (2-9); NEUTROPHILS # (AUTO) 5.81 x10^3/uL (1.8-6.8); NEUTROPHILS % (AUTO) 80 % (42-75); PLATELET COUNT 159 x10^3/uL (130-400); RED BLOOD COUNT 4.01 x10^6/uL (4.38-5.82); RED CELL DISTRIBUTION WIDTH 20.8 % (9.4-14.8)
[2019-08-18 06:14] LABS: ANION GAP 11 mmol/L (5-15); CHLORIDE 113 mmol/L (98-107); CREATININE 1.89 mg/dL (0.7-1.3)
[2019-08-18] MEDS ORDERED: FLUOXETINE 10 MG CAP PO SCH (09:00)
[2019-08-18] MEDS ORDERED: FUROSEMIDE 40 MG TABLET PO SCH (09:00)
[2019-08-18] MEDS ORDERED: LINAGLIPTIN 5 MG TAB PO SCH (09:00)
[2019-08-18] MEDS: APIXABAN 2.5 MG TABLET PO SCH (09:05)
[2019-08-18] MEDS: ASPIRIN 81 MG TABLET EC PO SCH (09:05)
[2019-08-18] MEDS: ISOSORBIDE MONONITRATE ER 30 MG TABLET PO SCH (09:05)
[2019-08-18] MEDS: CARVEDILOL 6.25 MG TABLET PO SCH (09:05)
[2019-08-18] MEDS ORDERED: CARV12.52 PO (13:41)
[2019-08-18] MEDS ORDERED: FURO-93 PO (13:41)
[2019-08-18] MEDS ORDERED: ACET325T26 PO (13:41)
[2019-08-18] MEDS ORDERED: APIX5TAB PO (13:41)
[2019-08-18] MEDS ORDERED: CARVEDILOL 12.5 MG TABLET PO SCH (21:00)
== END 2019-08-18 17:18 | disposition home or self-care (01) | DRG 167 ==
LOC: CACL 06:03 → ORIP 06:28 → CCU 13:06
PROVIDERS: ADMIT Internal Medicine Cardiovascular Disease; ATTEND Internal Medicine Cardiovascular Disease
PROC: B24BZZ4 Ultrasonography of Heart with Aorta, Transesophageal (ICD-10-PCS; 2019-08-17)
PROC: 02UG3JZ Supplement Mitral Valve with Synthetic Substitute, Percutaneous Approach (ICD-10-PCS; principal; 2019-08-17 08:00)
DX: I08.1 Rheumatic disorders of both mitral and tricuspid valves (principal); I50.43 Acute on chronic combined systolic (congestive) and diastolic (congestive) heart failure; E11.22 Type 2 diabetes mellitus with diabetic chronic kidney disease; I42.9 Cardiomyopathy, unspecified; I13.0 Hypertensive heart and chronic kidney disease with heart failure and stage 1 through stage 4 chronic kidney disease, or unspecified chronic kidney disease; E78.5 Hyperlipidemia, unspecified; I25.10 Atherosclerotic heart disease of native coronary artery without angina pectoris; N18.3 Chronic kidney disease, stage 3 (moderate); Z88.8 Allergy status to other drugs, medicaments and biological substances
CPT/HCPCS: 33418; 36415; 76937; 80048; 83880; 85025; 85347; 85610; 86850; 86900; 87081; 93005; 93306; 93312; 93321; 93325; 93355; C1766; C1769; C1893; C1894; G0378; J0690; J1644; J1940; J2704; J3010; J0360

== ENCOUNTER → 2019-09-28 | Outpatient (CLI) | payer MEDICAID ==
[~2019-09-28] MED LIST changes: +ACET325T26 PO; +CARV12.52 PO; +FURO-93 PO
== END | disposition home or self-care (01) ==
LOC: CVU 12:54
PROVIDERS: ATTEND Internal Medicine Cardiovascular Disease
DX: Z01.810 Encounter for preprocedural cardiovascular examination (principal); R06.02 Shortness of breath; I65.29 Occlusion and stenosis of unspecified carotid artery; E11.9 Type 2 diabetes mellitus without complications; I11.9 Hypertensive heart disease without heart failure; I25.10 Atherosclerotic heart disease of native coronary artery without angina pectoris; E78.5 Hyperlipidemia, unspecified; I08.0 Rheumatic disorders of both mitral and aortic valves
CPT/HCPCS: 93306; 93356

== ENCOUNTER 2020-01-29 15:00 | Inpatient (IN) | payer MEDICAID ==
[~2020-01-29] VITALS: Ht 167.6 cm; Wt 79.2 kg
[~2020-01-29 15:00] MED LIST changes: -FLUO10CA14 PO; +FLUO10CA15 PO; -PANT40TA5 PO; +PANT40TA6 PO
--- NOTE | 2020-01-29 15:05 | NUR ---
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 PT TOOK NITRO X 2 AT HOME WITH SOME RELIEF OF CP. PT HAS EXTENSIVE HEART HX INCLUDING M1 WITH 4 STENTS, MITRAL VALVE REPAIR IN JULY OF THIS YEAR WITH EF OF 10-15 PRIOR.
--- NOTE | 2020-01-29 15:25 | NUR ---
DAUGHTER AT BEDSIDE. PT OXYGEN ADJUSTED TO 4 LITERS OXY MASK FROM NRB AFTER PT HAD 100% PULSEOX.
[2020-01-29 15:26] LABS: BASOPHILS % (AUTO) 1 % (0-1); EOSINOPHILS % (AUTO) 3 % (1-7); LYMPHOCYTES % (AUTO) 12 % (22-44); MEAN CORPUSCULAR HEMOGLOBIN 30.3 pg (27.5-34.5); MEAN CORPUSCULAR HGB CONC 30.7 g/dL (33.2-36.2); MEAN PLATELET VOLUME 8.9 fL (7.4-10.4); MONOCYTES % (AUTO) 10 % (2-9); NEUTROPHILS % (AUTO) 75 % (42-75); PLATELET COUNT 173 x10^3/uL (130-400); RED BLOOD COUNT 4.72 x10^6/uL (4.38-5.82); RED CELL DISTRIBUTION WIDTH 18.6 % (9.4-14.8)
[2020-01-29] MEDS ORDERED: ASPIRIN 81 MG TABLET CHEW ONE (15:28)
[2020-01-29] MEDS ORDERED: MORPHINE SULFATE 4 MG/ML, 1ML ONE (15:28)
[2020-01-29] MEDS ORDERED: SODIUM CHLORIDE 0.9% 1,000 ML IV ONE (15:30)
[2020-01-29] MEDS ORDERED: SODIUM CHLORIDE FLUSH 10ML SYR IVF ONE (15:30)
[2020-01-29] MEDS ORDERED: ASPIRIN 81 MG TABLET CHEW PO ONE ×2 (15:30→18:30)
[2020-01-29] MEDS ORDERED: ONDANSETRON 2MG/ML, 2ML ONE (15:35)
[2020-01-29 15:37] LABS: ALBUMIN 3.4 g/dL (3.4-5.0); ANION GAP 11 mmol/L (5-15); CALCIUM 8.7 mg/dL (8.5-10.1); CHLORIDE 117 mmol/L (98-107); CREATININE 3.03 mg/dL (0.7-1.3)
[2020-01-29] MEDS: MORPHINE SULFATE 4 MG/ML, 1ML IVPush PRN ×2 (15:37→20:44)
[2020-01-29] MEDS ORDERED: CARV6.252 PO (15:44)
[2020-01-29 15:59] LABS: MD NO
[2020-01-29] MEDS ORDERED: ONDANSETRON 2MG/ML, 2ML IVPush ONE ×2 (16:00)
--- NOTE | 2020-01-29 16:03 | NUR ---
PT REPORT PAIN IS 6/10 AFTER MORPHINE. WAITING FOR RESULTS.
--- NOTE | 2020-01-29 16:11 | NUR ---
PT HAS HR CONSISTENTLY IN THE 30'S WITH PULSE OX DIPPING INTO HIGH 80'S ON OXY MASK SET AT 4 LITERS WHILE PT IS TRYING TO REST. OXY MASK INCREASED TO 10 LITERS AND EKG BEING REPEATED PER DR. LOUISE.
--- NOTE | 2020-01-29 16:50 | NUR ---
PT REMAINS BRADYCARDIAC, TALKING WITH DAUGHTER AT THIS TIME.
--- NOTE | 2020-01-29 17:10 | NUR ---
HOSPITILIST AT BEDSIDE, AWAIT CARDIOLOGY, DAUGHTER REMAINS AT BEDSIDE, REMAINS SB MONITOR, RATE 30'S.
--- NOTE | 2020-01-29 17:24 | NUR ---
WARM BLANKETS GIVEN, REMAINS BRADYCARDIC, AA AND O TIMES 4, NEPALI SPEAKING ONLY DAUGHTER INTERPRETING.
[2020-01-29] MEDS ORDERED: SODIUM CHLORIDE FLUSH 10ML SYR IVF PRN (18:00)
[2020-01-29] MEDS ORDERED: ONDANSETRON 2MG/ML, 2ML IVPush PRN (18:00)
[2020-01-29] MEDS ORDERED: HEPARIN 5,000 UNITS/ML, 1ML SQ SCH (18:00)
[2020-01-29] MEDS ORDERED: ONDANSETRON ODT 4 MG PO PRN (18:00)
--- NOTE | 2020-01-29 18:13 | NUR ---
sleeping quietly at this time, daughter at bedside. remains SB.
[2020-01-29] MEDS ORDERED: ASPIRIN 325 MG TABLET EC PO ONE (18:30)
--- NOTE | 2020-01-29 18:32 | NUR ---
SLEEPING QUIETLY, REMAINS SB MONITOR, AA AND O TIMES 4 WHEN AWAKE, MAP GREATER THAN 60, PLEASANT FAMILY
--- NOTE | 2020-01-29 18:53 | NUR ---
Resting quietly, daughter at bedside, await room assignement
--- NOTE | 2020-01-29 18:58 | NUR ---
trop 0.133, reported to provider
[2020-01-29 18:59] LABS: TROPONIN I 0.133 ng/mL (0.000-0.045)
[2020-01-29] MEDS: SODIUM CHLORIDE FLUSH 10ML SYR IVF SCH (20:16)
[2020-01-29] MEDS: ATORVASTATIN 80 MG TABLET PO SCH (20:45)
[2020-01-29 21:25] LABS: TROPONIN I 0.616 ng/mL (0.000-0.045)
[2020-01-29] MEDS ORDERED: FENTANYL PF 100 MCG/2ML ONE (22:44)
[2020-01-29] MEDS ORDERED: BIVALIRUDIN 250 MG ONE (22:44)
[2020-01-29] MEDS ORDERED: TICAGRELOR 90 MG TABLET ONE (22:44)
[2020-01-29] MEDS ORDERED: LIDOCAINE 2%, 20ML ONE (22:44)
[2020-01-29] MEDS ORDERED: MIDAZOLAM 1 MG/ML, 5ML ONE (22:44)
[2020-01-30] MEDS ORDERED: BIVALIRUDIN 250 MG in SODIUM CHLORIDE 0.9% 50 ML IV SCH
[2020-01-30 04:00] VITALS: BP 126/82
[2020-01-30 04:27] LABS: BASOPHILS % (AUTO) 0 % (0-1); EOSINOPHILS % (AUTO) 0 % (1-7); LYMPHOCYTES % (AUTO) 6 % (22-44); MEAN CORPUSCULAR HEMOGLOBIN 30.2 pg (27.5-34.5); MEAN CORPUSCULAR HGB CONC 31.2 g/dL (33.2-36.2); MONOCYTES % (AUTO) 12 % (2-9); NEUTROPHILS % (AUTO) 82 % (42-75); PLATELET COUNT 185 x10^3/uL (130-400); RED BLOOD COUNT 4.33 x10^6/uL (4.38-5.82); RED CELL DISTRIBUTION WIDTH 18.3 % (9.4-14.8)
[2020-01-30 04:31] LABS: ALANINE AMINOTRANSFERASE 42 U/L (12-78); ALBUMIN 3.3 g/dL (3.4-5.0); ANION GAP 6 mmol/L (5-15); CALCIUM 8.3 mg/dL (8.5-10.1); CHLORIDE 113 mmol/L (98-107); CREATININE 3.28 mg/dL (0.7-1.3)
[2020-01-30 04:41] LABS: ALKALINE PHOSPHATASE 165 U/L (45-117); BILIRUBIN,TOTAL 0.9 mg/dL (0.2-1.0); TOTAL PROTEIN 6.7 g/dL (6.4-8.2)
[2020-01-30 05:55] LABS: MD SCAN
[2020-01-30] MEDS ORDERED: ASPIRIN 325 MG TABLET EC PO SCH (06:00)
[2020-01-30] MEDS ORDERED: SODIUM ZIRCONIUM CYCLOSILICATE 5 GM PO ONE (06:30)
[2020-01-30] MEDS ORDERED: FLUO10TA PO (08:39)
[2020-01-30] MEDS: SODIUM CHLORIDE FLUSH 10ML SYR IVF SCH ×2 (09:00→19:18)
[2020-01-30] MEDS ORDERED: ASPIRIN 81 MG TABLET EC PO SCH (09:00)
[2020-01-30] MEDS: TICAGRELOR 90 MG TABLET PO SCH ×2 (09:48→19:18)
[2020-01-30] MEDS: ASPIRIN 81 MG TABLET EC PO SCH (09:48)
[2020-01-30 10:03] LABS: ANION GAP 9 mmol/L (5-15); CALCIUM 8.8 mg/dL (8.5-10.1); CHLORIDE 112 mmol/L (98-107)
[2020-01-30 10:04] LABS: CREATININE 3.43 mg/dL (0.7-1.3)
[2020-01-30] MEDS ORDERED: ALBUTEROL HFA 90 MCG/SPRAY INH PRN (11:00)
[2020-01-30] MEDS: FLUTICASONE/VILANTEROL 100-25MCG/INH INH SCH (11:00)
[2020-01-30] MEDS: MORPHINE SULFATE 4 MG/ML, 1ML IVPush PRN (14:20)
[2020-01-30] MEDS: ATORVASTATIN 80 MG TABLET PO SCH (19:18)
[2020-01-31 04:00] VITALS: BP 132/78
[2020-01-31 05:00] LABS: BASOPHILS % (AUTO) 1 % (0-1); EOSINOPHILS % (AUTO) 1 % (1-7); LYMPHOCYTES % (AUTO) 5 % (22-44); MEAN CORPUSCULAR HEMOGLOBIN 30.3 pg (27.5-34.5); MEAN CORPUSCULAR HGB CONC 31.7 g/dL (33.2-36.2); MEAN PLATELET VOLUME 8.7 fL (7.4-10.4); MONOCYTES % (AUTO) 11 % (2-9); NEUTROPHILS % (AUTO) 82 % (42-75); PLATELET COUNT 147 x10^3/uL (130-400); RED BLOOD COUNT 4.28 x10^6/uL (4.38-5.82); RED CELL DISTRIBUTION WIDTH 18.2 % (9.4-14.8)
[2020-01-31 05:03] LABS: CHLORIDE 115 mmol/L (98-107)
[2020-01-31 05:12] LABS: ALANINE AMINOTRANSFERASE 37 U/L (12-78); ALKALINE PHOSPHATASE 144 U/L (45-117); ANION GAP 9 mmol/L (5-15); BILIRUBIN,TOTAL 1.2 mg/dL (0.2-1.0); CALCIUM 8.4 mg/dL (8.5-10.1); CREATININE 2.78 mg/dL (0.7-1.3); TOTAL PROTEIN 6.1 g/dL (6.4-8.2)
[2020-01-31 05:58] LABS: MD SCAN
[2020-01-31] MEDS: SODIUM CHLORIDE FLUSH 10ML SYR IVF SCH ×2 (08:55→20:28)
[2020-01-31] MEDS: SODIUM BICARBONATE 650 MG TABLET PO SCH ×2 (08:55→20:28)
[2020-01-31] MEDS: ASPIRIN 81 MG TABLET EC PO SCH (08:55)
[2020-01-31] MEDS: TICAGRELOR 90 MG TABLET PO SCH ×2 (08:55→19:33)
[2020-01-31] MEDS: FLUTICASONE/VILANTEROL 100-25MCG/INH INH SCH ×2 (08:56→11:00)
[2020-01-31] MEDS ORDERED: FLUOXETINE 10 MG CAP PO SCH (09:00)
[2020-01-31] MEDS: SODIUM CHLORIDE 0.9% 1,000 ML IV SCH (09:20)
[2020-01-31] MEDS: FLUOXETINE HCL 20 MG/5 ML ORAL.SOL PO SCH (09:35)
[2020-01-31] MEDS ORDERED: CEFAZOLIN PMX 1GM/50ML 50 ML IVPB ONE (11:00)
[2020-01-31 13:18] VITALS: BP 105/80
[2020-01-31] MEDS ORDERED: LIDOCAINE-MPF 1%, 5ML ONE (13:43)
[2020-01-31] MEDS ORDERED: VERAPAMIL 2.5 MG/ML, 2ML ONE (13:43)
[2020-01-31] MEDS ORDERED: MIDAZOLAM 1 MG/ML, 2ML ONE (13:43)
[2020-01-31] MEDS ORDERED: NITROGLYCERIN 30 MCG/ML, 20ML VIAL ONE (13:43)
[2020-01-31] MEDS ORDERED: FENTANYL PF 100 MCG/2ML ONE (13:43)
[2020-01-31] MEDS ORDERED: BIVALIRUDIN 250 MG ONE (13:51)
[2020-01-31] MEDS ORDERED: LIDOCAINE 1%, 20ML ONE (14:11)
[2020-01-31] MEDS ORDERED: SODIUM CHLORIDE 0.9% 1,000 ML IV SCH (15:30)
[2020-01-31 20:17] VITALS: BP 139/83
[2020-01-31] MEDS: ATORVASTATIN 80 MG TABLET PO SCH (20:28)
[2020-01-31] MEDS: MORPHINE SULFATE 4 MG/ML, 1ML IVPush PRN (22:24)
[2020-02-01 02:00] VITALS: BP 142/72
[2020-02-01 04:43] LABS: ANION GAP 4 mmol/L (5-15); CALCIUM 7.9 mg/dL (8.5-10.1); CHLORIDE 115 mmol/L (98-107); CREATININE 2.25 mg/dL (0.7-1.3)
[2020-02-01] MEDS: SODIUM CHLORIDE 0.9% 1,000 ML IV SCH (06:00)
[2020-02-01 10:00] VITALS: BP 140/86
[2020-02-01] MEDS: TICAGRELOR 90 MG TABLET PO SCH ×2 (10:05→21:27)
[2020-02-01] MEDS: FLUOXETINE HCL 20 MG/5 ML ORAL.SOL PO SCH (10:06)
[2020-02-01] MEDS: SODIUM BICARBONATE 650 MG TABLET PO SCH ×2 (10:06→21:27)
[2020-02-01] MEDS: ASPIRIN 81 MG TABLET EC PO SCH (10:06)
[2020-02-01] MEDS: SODIUM CHLORIDE FLUSH 10ML SYR IVF SCH ×3 (10:13→21:28)
[2020-02-01] MEDS ORDERED: FENTANYL PF 100 MCG/2ML ONE ×2 (12:51→15:39)
[2020-02-01] MEDS ORDERED: LIDOCAINE 2%, 20ML ONE (12:51)
[2020-02-01] MEDS ORDERED: CEFAZOLIN 1,000 MG ONE ×2 (12:51→13:36)
[2020-02-01] MEDS ORDERED: CEFAZOLIN PMX 1GM/50ML 50 ML ONE (12:51)
[2020-02-01] MEDS ORDERED: MIDAZOLAM 1 MG/ML, 5ML ONE (12:51)
[2020-02-01] MEDS ORDERED: PROPOFOL 50 ML ONE ×2 (13:19→14:22)
[2020-02-01] MEDS ORDERED: FENTANYL PF 250 MCG/5ML ONE (13:19)
[2020-02-01] MEDS ORDERED: SUCCINYLCHOLINE 20 MG/ML, 10ML ONE (13:36)
[2020-02-01] MEDS ORDERED: ONDANSETRON 2MG/ML, 2ML ONE (13:36)
[2020-02-01] MEDS ORDERED: ROCURONIUM 10MG/ML,5ML ONE (14:22)
[2020-02-01] MEDS ORDERED: ACETAMINOPHEN 325 MG TABLET PO PRN ×2 (15:00→15:30)
[2020-02-01] MEDS ORDERED: HOLD MEDICATION MC PRN (15:00)
[2020-02-01] MEDS ORDERED: DIAZEPAM 5 MG/ML, 2ML IVPush PRN (15:30)
[2020-02-01] MEDS ORDERED: EPHEDRINE 50 MG/ML, 1ML IVPush PRN (15:30)
[2020-02-01] MEDS ORDERED: OXYcodone 5 MG/5 ML ORAL.SOL UDC PO PRN (15:30)
[2020-02-01] MEDS ORDERED: DIPHENHYDRAMINE 50 MG/ML, 1ML IVPush PRN (15:30)
[2020-02-01] MEDS ORDERED: PROMETHAZINE 25 MG/ML, 1ML IVPush PRN (15:30)
[2020-02-01] MEDS ORDERED: FENTANYL PF 100 MCG/2ML IV PRN (15:30)
[2020-02-01] MEDS ORDERED: EPHEDRINE 50 MG/ML, 1ML IM PRN (15:30)
[2020-02-01] MEDS ORDERED: morphine SULFATE 10 MG/ML, 1ML IVPush PRN (15:30)
[2020-02-01] MEDS ORDERED: ONDANSETRON 2MG/ML, 2ML IVPush PRN (15:30)
[2020-02-01] MEDS ORDERED: OXYcodone 5 MG/5 ML ORAL.SOL UDC ONE (15:39)
[2020-02-01 17:28] VITALS: BP 163/88
[2020-02-01 18:20] VITALS: BP 156/73
[2020-02-01 19:42] VITALS: BP 134/83
[2020-02-01 21:23] VITALS: BP 165/92
[2020-02-01] MEDS: ATORVASTATIN 80 MG TABLET PO SCH (21:27)
[2020-02-01] MEDS: CEFAZOLIN PMX 1GM/50ML 50 ML IVPB SCH (21:27)
[2020-02-02] MEDS: MORPHINE SULFATE 4 MG/ML, 1ML IVPush PRN (00:55)
[2020-02-02 01:47] VITALS: BP 152/80
[2020-02-02] MEDS: SODIUM CHLORIDE 0.9% 1,000 ML IV SCH ×2 (02:10→22:02)
[2020-02-02] MEDS: CEFAZOLIN PMX 1GM/50ML 50 ML IVPB SCH (04:04)
[2020-02-02] MEDS: ACETAMINOPHEN 325 MG TABLET PO PRN ×4 (04:04→21:33)
[2020-02-02 08:31] VITALS: BP 155/85
[2020-02-02] MEDS: SODIUM CHLORIDE FLUSH 10ML SYR IVF SCH ×4 (09:54→20:41)
[2020-02-02] MEDS: TICAGRELOR 90 MG TABLET PO SCH ×2 (09:58→20:40)
[2020-02-02] MEDS: FLUOXETINE HCL 20 MG/5 ML ORAL.SOL PO SCH (09:59)
[2020-02-02] MEDS: ASPIRIN 81 MG TABLET EC PO SCH (09:59)
[2020-02-02 12:30] VITALS: BP 151/79
[2020-02-02] MEDS: FUROSEMIDE 20 MG TABLET PO SCH (12:56)
[2020-02-02] MEDS ORDERED: CARVEDILOL 6.25 MG TABLET PO SCH (18:00)
[2020-02-02] MEDS ORDERED: METOPROLOL TARTRATE 25 MG TAB PO SCH (18:00)
[2020-02-02] MEDS: CARVEDILOL 12.5 MG TABLET PO SCH (18:10)
[2020-02-02 20:40] VITALS: BP 130/78
[2020-02-02] MEDS: ATORVASTATIN 80 MG TABLET PO SCH (20:40)
[2020-02-02] MEDS: LOSARTAN 25MG TABLET PO SCH (20:41)
[2020-02-03] MEDS: ACETAMINOPHEN 325 MG TABLET PO PRN ×2 (01:36→09:21)
[2020-02-03 01:38] VITALS: BP 110/66
[2020-02-03 05:31] LABS: BASOPHILS % (AUTO) 1 % (0-1); EOSINOPHILS % (AUTO) 4 % (1-7); LYMPHOCYTES % (AUTO) 5 % (22-44); MEAN CORPUSCULAR HEMOGLOBIN 30.2 pg (27.5-34.5); MEAN CORPUSCULAR HGB CONC 32.2 g/dL (33.2-36.2); MEAN PLATELET VOLUME 8.5 fL (7.4-10.4); MONOCYTES % (AUTO) 14 % (2-9); NEUTROPHILS % (AUTO) 77 % (42-75); PLATELET COUNT 133 x10^3/uL (130-400); RED BLOOD COUNT 3.78 x10^6/uL (4.38-5.82); RED CELL DISTRIBUTION WIDTH 17.8 % (9.4-14.8)
[2020-02-03 05:33] LABS: ANION GAP 5 mmol/L (5-15); CALCIUM 8.2 mg/dL (8.5-10.1); CHLORIDE 115 mmol/L (98-107); CREATININE 2.02 mg/dL (0.7-1.3)
[2020-02-03 05:36] LABS: MD NO
[2020-02-03 05:51] VITALS: BP 128/76
[2020-02-03] MEDS: CARVEDILOL 12.5 MG TABLET PO SCH (05:52)
[2020-02-03 06:50] VITALS: BP 106/65
[2020-02-03] MEDS ORDERED: LOSARTAN 25MG TABLET PO SCH (09:00)
[2020-02-03] MEDS: SODIUM CHLORIDE FLUSH 10ML SYR IVF SCH ×2 (09:00→09:20)
[2020-02-03] MEDS: TICAGRELOR 90 MG TABLET PO SCH (09:21)
[2020-02-03] MEDS: FUROSEMIDE 20 MG TABLET PO SCH (09:21)
[2020-02-03] MEDS: ASPIRIN 81 MG TABLET EC PO SCH (09:21)
[2020-02-03] MEDS: FLUOXETINE HCL 20 MG/5 ML ORAL.SOL PO SCH (09:22)
[2020-02-03] MEDS: LOSARTAN 25MG TABLET PO SCH (09:30)
[2020-02-03 12:47] VITALS: BP 118/70
[2020-02-03] MEDS ORDERED: HYDROcodone/APAP 5/325 TABLET PO ONE (13:30)
== END 2020-02-03 18:53 | disposition home or self-care (01) | DRG 161 ==
LOC: ED 16:37 → EDIP 17:42 → CCU 19:53 → 5SO 02-01 15:04
PROVIDERS: ADMIT Family Medicine; ATTEND Internal Medicine
PROC: 4A023N7 Measurement of Cardiac Sampling and Pressure, Left Heart, Percutaneous Approach (ICD-10-PCS; 2020-01-29)
PROC: B2111ZZ Fluoroscopy of Multiple Coronary Arteries using Low Osmolar Contrast (ICD-10-PCS; 2020-01-29)
PROC: B2151ZZ Fluoroscopy of Left Heart using Low Osmolar Contrast (ICD-10-PCS; 2020-01-29)
PROC: 027034Z Dilation of Coronary Artery, One Artery with Drug-eluting Intraluminal Device, Percutaneous Approach (ICD-10-PCS; 2020-01-29)
PROC: 02C03ZZ Extirpation of Matter from Coronary Artery, One Artery, Percutaneous Approach (ICD-10-PCS; 2020-01-29)
PROC: 02HL3KZ Insertion of Defibrillator Lead into Left Ventricle, Percutaneous Approach (ICD-10-PCS; 2020-02-01)
PROC: 02H63KZ Insertion of Defibrillator Lead into Right Atrium, Percutaneous Approach (ICD-10-PCS; 2020-02-01)
PROC: 0JH609Z Insertion of Cardiac Resynchronization Defibrillator Pulse Generator into Chest Subcutaneous Tissue and Fascia, Open Approach (ICD-10-PCS; principal; 2020-02-01 14:00)
DX: T82.855A Stenosis of coronary artery stent, initial encounter (principal); E11.22 Type 2 diabetes mellitus with diabetic chronic kidney disease; E87.2 Acidosis; E78.5 Hyperlipidemia, unspecified; D68.69 Other thrombophilia; I13.0 Hypertensive heart and chronic kidney disease with heart failure and stage 1 through stage 4 chronic kidney disease, or unspecified chronic kidney disease; I25.10 Atherosclerotic heart disease of native coronary artery without angina pectoris; I25.2 Old myocardial infarction; I25.5 Ischemic cardiomyopathy; I27.20 Pulmonary hypertension, unspecified; I44.7 Left bundle-branch block, unspecified; I50.43 Acute on chronic combined systolic (congestive) and diastolic (congestive) heart failure; R00.1 Bradycardia, unspecified; N17.9 Acute kidney failure, unspecified; N18.30 Chronic kidney disease, stage 3 unspecified; Z66 Do not resuscitate; Y83.1 Surgical operation with implant of artificial internal device as the cause of abnormal reaction of the patient, or of later complication, without mention of misadventure at the time of the procedure; Z87.891 Personal history of nicotine dependence
CPT/HCPCS: J3490 ×3; 33210; 33225; 33249; 36415; 71045; 80048; 80053; 82040; 83735; 83880; 84443; 84484; 85025; 87081; 93005; 93306; 93458; 96361; 96374; 99156; 99157; 99285; C1760; C1769; C1779; C1887; C1892; C1894; C1895; C9600; G0378; J0583; J0690; J1644; J2250; J2405; J2704; J3010; C1725; C1757; C1874; C1882; C1900; J0330; J2270; J7030; Q9967

== ENCOUNTER → 2020-07-04 | Outpatient (CLI) | payer MEDICAID ==
[~2020-07-04] MED LIST changes: +CARV6.252 PO
== END | disposition home or self-care (01) ==
LOC: CVU 14:46
PROVIDERS: ATTEND Internal Medicine Cardiovascular Disease
DX: Z01.810 Encounter for preprocedural cardiovascular examination (principal); I65.29 Occlusion and stenosis of unspecified carotid artery; E11.9 Type 2 diabetes mellitus without complications; E78.5 Hyperlipidemia, unspecified; I10 Essential (primary) hypertension; I34.0 Nonrheumatic mitral (valve) insufficiency
CPT/HCPCS: 93306; 93356

== ENCOUNTER 2020-08-09 11:01 | Observation (INO) | payer MEDICAID ==
[~2020-08-09] VITALS: Ht 144.8 cm; Wt 58.0 kg
[2020-08-09] MEDS ORDERED: SODIUM CHLORIDE 0.9% 1,000 ML IV ONE (11:30)
[2020-08-09] MEDS ORDERED: ONDANSETRON 2MG/ML, 2ML IV PRN (11:30)
[2020-08-09] MEDS ORDERED: ATOR40TA PO (11:35)
[2020-08-09] MEDS ORDERED: ASPI81TA45 PO (11:35)
[2020-08-09] MEDS ORDERED: LINA5TAB PO (11:35)
[2020-08-09 12:11] LABS: BASOPHILS % (AUTO) 1 % (0-1); EOSINOPHILS % (AUTO) 4 % (1-7); LYMPHOCYTES % (AUTO) 9 % (22-44); MEAN CORPUSCULAR HEMOGLOBIN 31.4 pg (27.5-34.5); MEAN CORPUSCULAR HGB CONC 33.3 g/dL (33.2-36.2); MEAN PLATELET VOLUME 7.9 fL (7.4-10.4); MONOCYTES % (AUTO) 11 % (2-9); NEUTROPHILS % (AUTO) 76 % (42-75); PLATELET COUNT 119 x10^3/uL (130-400); RED BLOOD COUNT 4.23 x10^6/uL (4.38-5.82); RED CELL DISTRIBUTION WIDTH 16.5 % (9.4-14.8)
[2020-08-09 12:12] LABS: MD NO
[2020-08-09 12:19] LABS: INTERNATIONAL NORMALIZED RATIO 1.4 (0.93-1.1); PROTHROMBIN TIME 14.9 Seconds (9.6-11.5)
[2020-08-09 12:21] LABS: ANION GAP 4 mmol/L (5-15); CHLORIDE 117 mmol/L (98-107)
[2020-08-09 12:23] LABS: CREATININE 1.95 mg/dL (0.7-1.3)
[2020-08-09] MEDS ORDERED: FENTANYL PF 250 MCG/5ML ONE (13:17)
[2020-08-09] MEDS ORDERED: HEPARIN 1,000 UNITS/ML, 10ML ONE ×2 (13:18)
[2020-08-09] MEDS ORDERED: PROPOFOL 10 MG/ML, 20ML ONE (13:18)
[2020-08-09] MEDS ORDERED: ROCURONIUM 10MG/ML,5ML ONE (13:18)
[2020-08-09] MEDS ORDERED: ONDANSETRON 2MG/ML, 2ML ONE ×2 (13:18)
[2020-08-09] MEDS ORDERED: CEFAZOLIN 1,000 MG ONE ×2 (13:19)
[2020-08-09] MEDS ORDERED: DEXAMETHASONE 4 MG/ML, 1ML ONE (13:30)
[2020-08-09] MEDS ORDERED: SUCCINYLCHOLINE 20 MG/ML, 10ML ONE (13:30)
[2020-08-09] MEDS ORDERED: EPINEPHRINE 1 MG/ML, 1ML ONE (13:30)
[2020-08-09] MEDS ORDERED: LABETALOL 20 MG/4 ML IVPush PRN (14:30)
[2020-08-09] MEDS ORDERED: hydrALAzine 20 MG/ML, 1ML IVPush PRN (14:30)
[2020-08-09] MEDS ORDERED: ACETAMINOPHEN 650 MG SUPP PR PRN (14:30)
[2020-08-09] MEDS ORDERED: ONDANSETRON 2MG/ML, 2ML IVPush PRN (14:30)
[2020-08-09] MEDS: SODIUM CHLORIDE 0.9% 1,000 ML IV SCH (14:30)
[2020-08-09] MEDS ORDERED: TICA90TA PO (14:55)
[2020-08-09] MEDS ORDERED: TICAGRELOR 90 MG TABLET ONE (15:12)
[2020-08-09] MEDS ORDERED: ACETAMINOPHEN 325 MG TABLET ONE (15:12)
[2020-08-09] MEDS: ACETAMINOPHEN 650 MG/20.3 ML UDC PO PRN ×2 (15:19→20:42)
[2020-08-09] MEDS ORDERED: TICAGRELOR 90 MG TABLET PO ONE ×2 (15:30→17:30)
[2020-08-09 17:00] VITALS: BP 150/75
[2020-08-09 17:15] VITALS: BP 150/75
[2020-08-09 19:00] VITALS: BP 147/78
[2020-08-09] MEDS: TICAGRELOR 90 MG TABLET PO SCH (20:40)
[2020-08-09] MEDS: CARVEDILOL 6.25 MG TABLET PO SCH (20:41)
[2020-08-09] MEDS ORDERED: ATORVASTATIN 40 MG TABLET PO SCH (21:00)
[2020-08-09] MEDS ORDERED: LOSARTAN 25MG TABLET PO SCH (21:00)
[2020-08-10] MEDS: SODIUM CHLORIDE 0.9% 1,000 ML IV SCH (00:06)
[2020-08-10 01:25] VITALS: BP 149/78
[2020-08-10] MEDS ORDERED: ASPIRIN 81 MG TABLET EC PO SCH (09:00)
[2020-08-10] MEDS ORDERED: FLUOXETINE 10 MG CAP PO SCH (09:00)
[2020-08-10] MEDS ORDERED: LINAGLIPTIN 5 MG TAB PO SCH (09:00)
[2020-08-10] MEDS ORDERED: ISOSORBIDE MONONITRATE ER 30 MG TABLET PO SCH (09:00)
[2020-08-10] MEDS: TICAGRELOR 90 MG TABLET PO SCH (09:02)
[2020-08-10] MEDS: CARVEDILOL 6.25 MG TABLET PO SCH (09:05)
[2020-08-10] MEDS ORDERED: ACET650S21 PO (09:08)
[2020-08-10 09:10] VITALS: BP 144/75
[2020-08-10] MEDS: ACETAMINOPHEN 650 MG/20.3 ML UDC PO PRN (11:34)
== END 2020-08-10 12:52 | disposition home or self-care (01) ==
LOC: CACL 11:01 → INTOOBSV 14:27 → ORIP 14:27 → 5SO 16:58 → DCLOUNGE 08-10 11:49 → 5SO 08-10 12:11
PROVIDERS: ADMIT Internal Medicine Cardiovascular Disease; ATTEND Internal Medicine Cardiovascular Disease
DX: Q21.1 Atrial septal defect (principal); Z20.822 Contact with and (suspected) exposure to COVID-19; I11.0 Hypertensive heart disease with heart failure; I50.21 Acute systolic (congestive) heart failure; I25.5 Ischemic cardiomyopathy; I34.0 Nonrheumatic mitral (valve) insufficiency; E78.2 Mixed hyperlipidemia; I25.10 Atherosclerotic heart disease of native coronary artery without angina pectoris; E11.9 Type 2 diabetes mellitus without complications; Z98.61 Coronary angioplasty status; Z79.82 Long term (current) use of aspirin; Z79.899 Other long term (current) drug therapy
CPT/HCPCS: 36415; 76937; 80048; 82962; 85025; 85347; 85610; 87635; 93005; 93306; 93355; 93356; 93580; C1760; C1769; C1894; G0378; J0171; J0330; J0690; J1100; J1644; J2405; J2704; J3010; 93312; 93321; 93325

== ENCOUNTER → 2020-12-20 | Outpatient (CLI) | payer SELFPAY ==
[~2020-12-20] MED LIST changes: +ACET650S21 PO; +ATOR40TA PO
== END | disposition home or self-care (01) ==
LOC: CVU 08:27
PROVIDERS: ATTEND Internal Medicine Cardiovascular Disease
DX: Z01.810 Encounter for preprocedural cardiovascular examination (principal); I08.1 Rheumatic disorders of both mitral and tricuspid valves; R06.02 Shortness of breath; I65.29 Occlusion and stenosis of unspecified carotid artery; Q21.1 Atrial septal defect
CPT/HCPCS: 93306